=== PATIENT | male | born 2000 | race Caucasian/White ===

== ENCOUNTER 2019-04-08 20:22 | Emergency (ER) | payer OTHER ==
--- NOTE | 2019-04-08 22:05 | EDM.PDOC ---
ED HPI GENERAL MEDICAL PROBLEM - General Chief Complaint: Lower Extremity Injury/Pain Stated Complaint: INJURED RIGHT LEG IN A FALL Time Seen by Provider: 04/08/19 20:45 Source of Information: Reports: Patient History Limitations: Reports: No Limitations - History of Present Illness INITIAL COMMENTS - FREE TEXT/NARRATIVE: 18-year-old male presents for evaluation and treatment of injury to the right lower leg. Patient reports around 06:00 this morning he was walking up some stairs when he tripped and fell up the stairs. Reports he had a corner of the stairs on his right whittington. He has bruising and abrasion to the right whitting[place]. Reports pain with ambulation. He did go to work, works as auto mechanic, and had pain throughout the day and states that in the could no longer walk and it. He has not taken any [id number] medications for pain. No history of any trauma to this leg. Right Leg Pain Score (Numeric/FACES): 5 - Related Data Allergies Allergy/AdvReac Type Severity Reaction Status Date / Time amoxicillin Allergy Hives Verified 04/08/19 20:38 Home Meds: Home Meds Citalopram [Citalopram HBr] 20 mg PO DAILY 04/08/19 [History] Past Medical History HEENT History: Reports: None Cardiovascular History: Reports: None Respiratory History: Reports: None Gastrointestinal History: Reports: None Genitourinary History: Reports: None Musculoskeletal History: Reports: Fracture Neurological History: Reports: None Psychiatric History: Reports: Depression Endocrine/Metabolic History: Reports: None Hematologic History: Reports: None Immunologic History: Reports: None Oncologic (Cancer) History: Reports: None Dermatologic History: Reports: None - Infectious Disease History Infectious Disease History: Reports: None - Past Surgical History Head Surgeries/Procedures: Reports: None Other Musculoskeletal Surgeries/Procedures:: Surgery on left arm after a fracture. Social & Family History - Caffeine Use Caffeine Use: Reports: Soda - Recreational Drug Use Recreational Drug Use: No Review of Systems - Review of Systems Review Of Systems: See Below Musculoskeletal: Reports: Leg Pain (right lower leg) Skin: Reports: Bruising (right anterior mid disal lower leg), Wound (right anterior mid lower leg approximately 8 cm in diameter abrasion) Neurological: Reports: Difficulty Walking. Denies: Numbness, Tingling ED EXAM, GENERAL - Physical Exam Exam: See Below Exam Limited By: No Limitations General Appearance: Alert, WD/WN, No Apparent Distress Respiratory/Chest: No Respiratory Distress Cardiovascular: Normal Peripheral Pulses, Regular Rate, Rhythm Peripheral Pulses: 3+: Posterior Tibial (R), Dorsalis Pedis (R) Extremities: Normal Inspection (no obvious fractures), Normal Range of Motion ( pain with dorsiflexion and plantarflexion), Normal Capillary Refill, Other ( right anterior mid lower leg approximately 8 cm in diameter abrasion, approximately 8cm ecchymosis distal to the abrasion, surrounding swelling) Neurological: Alert, Oriented, Normal Cognition Psychiatric: Normal Affect, Normal Mood Skin Exam: Warm, Dry, Normal Color, Ecchymosis (right anterior lower leg), Wound /Incision (abrasion to the right lower leg) Course - Vital Signs Last Recorded V/S: Last Vital Signs Temp 98.3 F 04/08/19 20:35 Pulse 98 04/08/19 20:35 Resp 16 04/08/19 20:35 BP 155/90 H 04/08/19 20:35 Pulse Ox 99 04/08/19 20:35 - Orders/Labs/Meds Orders: Active Orders 24 hr Category Date Time Status Tibia Fibula Rt [CR] Stat Exams 04/08/19 20:54 Taken Durable Medical Equipment for Discharge [DME for Oth 04/08/19 21:59 Ordered Discharge] [COMM] Stat - Radiology Interpretation Free Text/Narrative:: xray of the tib/fib shows no acute fractures or dislocations. - Re-Assessments/Exams Free Text/Narrative Re-Assessment/Exam: 04/08/19 22:00 reviewed the xray results with patient. recommend crutches and an IGOR bandage. recommend ice and ibuprofen. Follow-up if not much better. Discharge instructions as documented. Departure - Departure Time of Disposition: 22:03 Disposition: Home, Self-Care 01 Condition: Good Clinical Impression: Ecchymosis, Hematoma - Discharge Information *PRESCRIPTION DRUG MONITORING PROGRAM REVIEWED*: No *COPY OF PRESCRIPTION DRUG MONITORING REPORT IN PATIENT JERONIMO: No Instructions: Hematoma, [id number] Referrals: PCP,None [Primary Care Provider] - Forms: ED Department Discharge Additional Instructions: Use the Igor bandage for compression and crutches as needed for discomfort. Ice, elevate and ibuprofen. Elevate the leg as much as you're able to. Ice it multiple times a day. If able recommend taking the next 1-2 days off work to allow the wound to heal. Monitor the abrasion for signs of infection such as increased, swelling, pus or redness. Present to the clinic or the ER should these develop. Follow-up with family medicine if not much better in 7-10 days. Please return to the ER if your symptoms change or worsen. - My Orders Last 24 Hours: My Active Orders 04/08/19 20:54 Tibia Fibula Rt [CR] Stat 04/08/19 21:59 Durable Medical Equipment for Discharge [DME for Discharge] [COMM] Stat - Assessment/Plan Last 24 Hours: My Active Orders 04/08/19 20:54 Tibia Fibula Rt [CR] Stat 04/08/19 21:59 Durable Medical Equipment for Discharge [DME for Discharge] [COMM] Stat
== END 2019-04-08 22:18 | disposition home or self-care (01) ==
LOC: JD.ED 20:22
DX: S80.11XA Contusion of right lower leg, initial encounter (principal); Z88.1 Allergy status to other antibiotic agents; Z79.899 Other long term (current) drug therapy; W10.9XXA Fall (on) (from) unspecified stairs and steps, initial encounter
CPT/HCPCS: 73590-RT; 99282; 99283-25

== ENCOUNTER 2019-11-12 18:10 | Emergency (ER) | payer OTHER ==
[2019-11-12] MEDS ORDERED: Sodium Chloride 0.9% 1,000 ML IV ONE (18:32)
[2019-11-12] MEDS ORDERED: Sodium Chloride 0.9% 10 ML Syringe FLUSH PRN (18:32)
[2019-11-12] MEDS ORDERED: Alum Hydrox/Mag Hydrox/Simeth 30 ML, Lidocaine 2% 15 ML PO ONE ×2 (18:32)
--- NOTE | 2019-11-12 18:39 | EDM.PDOC ---
ED HPI GENERAL MEDICAL PROBLEM - General Chief Complaint: Gastrointestinal Problem Stated Complaint: UPPER ABDOMINAL PAIN Time Seen by Provider: 11/12/19 18:18 Source of Information: Reports: Patient, RN Notes Reviewed History Limitations: Reports: No Limitations - History of Present Illness INITIAL COMMENTS - FREE TEXT/NARRATIVE: Patient is a 18-year-old male coming presents to the ED for the evaluation of upper abdominal pain. The patient states that he has had upper abdominal/ epigastric pain, present for the last 4 days. Patient states that he was seen in the [facility] by Sara Courtney, and was diagnosed with acid reflux, and was prescribed an acid reflux medication, he thinks it may have been omeprazole, he cannot member the name of the medication but did take this today. So he is only gotten 1 dose. Patient notes that the pain is a dull ache , all the time but does increase in severity when he eats or drinks anything. Patient states that he has not been able to eat or drink much in the last couple days. He states that he is only eaten 2 meals due to the pain. This consisted of a couple granola bars and some eggs. Patient notes this to be in his epigastrium and left lower rib cage or left upper quadrant area. He denies any nausea/vomiting/diarrhea, and states that his last bowel movement was normal for him this morning. The patient notes that the pain does worsen when he lies flat. Patient further denies any history of alcohol use, cigarette use , he does use a vape pen, denies drug use. Patient notes that he did not get any laboratory evaluation when he was evaluated in the clinic the other day. He denies any heart or lung issues. He also has no family history of any early cardiac demise. Patient denies any abdomen surgery history. Upper Abdominal Pain Score (Numeric/FACES): 2 - Related Data Allergies Allergy/AdvReac Type Severity Reaction Status Date / Time amoxicillin Allergy Hives Verified 11/12/19 18:21 Home Meds: Home Meds Citalopram [Citalopram HBr] 20 mg PO DAILY 04/08/19 [History] Sucralfate [Carafate] 1 gm PO TIDAC #21 ml 11/12/19 [Rx] Past Medical History Musculoskeletal History: Reports: Fracture Psychiatric History: Reports: Depression - Past Surgical History Other Musculoskeletal Surgeries/Procedures:: Surgery on left arm after a fracture. Social & Family History - Tobacco Use Smoking Status *Q: Current Every Day Smoker Tobacco Use Within Last Twelve Months: Vaping - Caffeine Use Caffeine Use: Reports: None - Recreational Drug Use Recreational Drug Use: No ED ROS GENERAL - Review of Systems Review Of Systems: Comprehensive ROS is negative, except as noted in HPI. ED EXAM, GI/ABD - Physical Exam Exam: See Below Exam Limited By: No Limitations General Appearance: Alert, WD/WN, No Apparent Distress Eyes: Bilateral: Normal Appearance Ears: Normal External Exam Nose: Normal Inspection Throat/Mouth: Normal Inspection, Normal Lips, Normal Teeth, Normal Gums, Normal Oropharynx, Normal Voice, No Airway Compromise Head: Atraumatic, Normocephalic Neck: Normal Inspection, Supple, Non-Tender, Full Range of Motion Respiratory/Chest: No Respiratory Distress, Lungs Clear, Normal Breath Sounds, No Accessory Muscle Use, Chest Non-Tender Cardiovascular: Normal Peripheral Pulses, Regular Rate, Rhythm, No Murmur GI/Abdominal Exam: Normal Bowel Sounds, Soft, No Distention, No Mass, Tender ( epigastrium and into LUQ) Extremities: Normal Inspection, Normal Capillary Refill Neurological: Alert, Oriented, Normal Cognition, No Motor/Sensory Deficits Psychiatric: Normal Affect, Normal Mood Skin Exam: Warm, Dry, Intact, Normal Color, No Rash Course - Vital Signs Last Recorded V/S: Last Vital Signs Temp 97.9 F 11/12/19 18:23 Pulse 73 11/12/19 18:23 Resp 18 11/12/19 18:23 BP 142/81 H 11/12/19 18:23 Pulse Ox 96 11/12/19 18:23 - Orders/Labs/Meds Orders: Active Orders 24 hr Category Date Time Status Peripheral IV Care [RC] . DIRECTED Care 11/12/19 18:32 Active Peripheral IV Insertion Adult [OM.PC] Routine Oth 11/12/19 18:32 Ordered Labs: Laboratory Tests 11/12/19 11/12/19 Range/Units 18:50 18:50 WBC 7.47 (4.23-9.07) K/mm3 RBC 5.29 (4.63-6.08) M/mm3 Hgb 16.5 (13.7-17.5) gm/dl Hct 45.0 (40.1-51.0) % MCV 85.1 (79.0-92.2) fl MCH 31.2 (25.7-32.2) pg MCHC 36.7 H (32.2-35.5) g/dl RDW Std Deviation 37.7 (35.1-43.9) fL Plt Count 390 H (163-337) K/mm3 MPV 8.8 L (9.4-12.3) fl Neut % (Auto) 71.4 H (34.0-67.9) % Lymph % (Auto) 18.2 L (21.8-53.1) % [place] % (Auto) 9.6 (5.3-12.2) % Eos % (Auto) 0.4 L (0.8-7.0) Baso % (Auto) 0.3 (0.1-1.2) % Neut # (Auto) 5.33 (1.78-5.38) K/mm3 Lymph # (Auto) 1.36 (1.32-3.57) K/mm3 [place] # (Auto) 0.72 (0.30-0.82) K/mm3 Eos # (Auto) 0.03 L (0.04-0.54) K/mm3 Baso # (Auto) 0.02 (0.01-0.08) K/mm3 Manual Slide Review Normal smear Sodium 141 (136-145) mEq/L Potassium 3.7 (3.5-5.1) mEq/L Chloride 104 (98-107) mEq/L Carbon Dioxide 27 (21-32) mEq/L Anion Gap 13.7 (5-15) BUN 14 (7-18) mg/dL Creatinine 1.1 (0.7-1.3) mg/dL Est Cr Clr Drug Dosing 110.61 mL/min Estimated GFR (MDRD) > 60 (>60) mL/min BUN/Creatinine Ratio 12.7 L (14-18) Glucose 93 (74-106) mg/dL Calcium 9.8 (8.5-10.1) mg/dL Total Bilirubin 1.0 (0.2-1.0) mg/dL AST 24 (15-37) U/L ALT 47 (16-63) U/L Alkaline Phosphatase 97 (46-116) U/L Total Protein 8.2 (6.4-8.2) g/dl Albumin 4.6 (3.4-5.0) g/dl Globulin 3.6 gm/dL Albumin/Globulin Ratio 1.3 (1-2) Lipase 108 (73-393) U/L Meds: Medications Discontinued Medications Generic Name Dose Route Start Last Admin Trade Name Freq PRN Reason Stop Dose Admin Al Hydroxide/Mg Hydroxide 30 0 ml 11/12/19 18:32 11/12/19 18:45 ml/ Lidocaine HCl 15 ml PO 11/12/19 18:33 45 ml ONETIME ONE Administration Sodium Chloride 1,000 mls @ 999 mls/hr 11/12/19 18:32 11/12/19 18:45 Normal Saline IV 11/12/19 19:32 999 mls/hr ONETIME ONE Administration Sodium Chloride 10 ml 11/12/19 18:32 11/12/19 18:53 Saline Flush FLUSH 10 ml ASDIRECTED PRN Administration Keep Vein Open - Re-Assessments/Exams Free Text/Narrative Re-Assessment/Exam: 11/12/19 18:39 Patient presents to the ED for upper epigastric/left upper quadrant pain. I do strongly believe that this is more heartburn or ulcer in nature, have ordered some labs for further evaluation. Did order a GI cocktail at this time for initial management. I did warn the patient that the omeprazole can take up to 72 hours to start working, as his first dose was only taken today. 11/12/19 19:38 Patient's labs are back and demonstrate no focal abnormalities. Patient will be discharged home with a course of Carafate and other general recommendations. Departure - Departure Time of Disposition: 19:38 Disposition: Home, Self-Care 01 Condition: Good Clinical Impression: Gastritis Qualifiers: Gastritis type: unspecified gastritis Chronicity: acute Gastritis bleeding: presence of bleeding unspecified Qualified Code(s): K29.00 - Acute gastritis without bleeding - Discharge Information *PRESCRIPTION DRUG MONITORING PROGRAM REVIEWED*: No *COPY OF PRESCRIPTION DRUG MONITORING REPORT IN PATIENT JERONIMO: No Prescriptions: Sucralfate [Carafate] 1 gm PO TIDAC #21 ml Instructions: Gastritis, Adult, [id number] Referrals: Sara Courtney NP [Ordering Only Provider] - Forms: ED Department Discharge Additional Instructions: You were evaluated in the ER today regarding your upper abdominal pain. You got some IV fluids, a GI cocktail and had some labs taken. The laboratory evaluation was essentially within normal limits. You seem to get some relief from the GI cocktail which would suggest that your symptoms are due more to a gastritis/ulcer/acid reflux in nature. Recommend you keep taking the medication already prescribed by Sara Courtney assuming that it is omeprazole (Prilosec). If she did not prescribe this medication recommend you pick some up at a retail pharmacy, and take as directed on the box, usually 1 tab daily. 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 You were given a prescription for sucralfate, please take 1 cup with meals, this will help coat the inner lining of your stomach, and provide you with some further pain relief so that you may eat meals. This was electronically prescribed to the [place] [facility], you will need to go there tomorrow and pick this up to take as directed. You may want to try to stick to a clear liquid diet, please get some full sugar Gatorade/Powerade and drink a few bottles on a daily basis, or stick to a bland diet. Try to stay away from spicy foods, alcohol, etc. Recommend you talk with your primary care provider, Sara Courtney about H. pylori testing, and the possibility of an upper endoscopy or EGD for further evaluation. Please return to the ED at any time if symptoms change or worsen. Sepsis Event Note - Evaluation Sepsis Screening Result: No Definite Risk - Focused Exam Vital Signs: Vital Signs Temp Pulse Resp BP Pulse Ox 11/12/19 18:23 97.9 F 73 18 142/81 H 96 Date Exam was Performed: 11/12/19 Time Exam was Performed: 20:12 - My Orders Last 24 Hours: My Active Orders 11/12/19 18:32 Peripheral IV Care [RC] . DIRECTED Peripheral IV Insertion Adult [OM.PC] Routine - Assessment/Plan Last 24 Hours: My Active Orders 11/12/19 18:32 Peripheral IV Care [RC] . DIRECTED Peripheral IV Insertion Adult [OM.PC] Routine
== END 2019-11-12 19:45 | disposition home or self-care (01) ==
LOC: JD.ED 18:10
DX: K29.00 Acute gastritis without bleeding (principal); F32.9 Major depressive disorder, single episode, unspecified; F17.290 Nicotine dependence, other tobacco product, uncomplicated; Z88.1 Allergy status to other antibiotic agents; Z79.899 Other long term (current) drug therapy
CPT/HCPCS: 36415; 80053; 83690; 85025; 96360; 99283; 99284-25; A9270-GY; J7030

== ENCOUNTER 2020-01-17 19:36 | Emergency (ER) | payer OTHER ==
[2020-01-17] MEDS ORDERED: Sodium Chloride 0.9% 10 ML Syringe FLUSH PRN (20:12)
[2020-01-17] MEDS ORDERED: Dexamethasone 10 MG/ML SDV IVPUSH ONE (20:12)
[2020-01-17] MEDS ORDERED: Ketorolac 30 MG/ML SDV IVPUSH ONE (20:12)
[2020-01-17] MEDS ORDERED: Sodium Chloride 0.9% 1,000 ML IV ONE (20:12)
[2020-01-17] MEDS ORDERED: cefTRIAXone 2 GM in Sodium Chloride 0.9% 100 ML IV ONE (20:13)
--- NOTE | 2020-01-17 20:34 | EDM.PDOC ---
ED HPI GENERAL MEDICAL PROBLEM - General Chief Complaint: ENT Problem Stated Complaint: THROAT PAIN CANT DRINK OR TAKE PILLS Time Seen by Provider: 01/17/20 20:00 Source of Information: Reports: Patient History Limitations: Reports: No Limitations - History of Present Illness INITIAL COMMENTS - FREE TEXT/NARRATIVE: Wilbert is a 19 year old male who presents to the ER with sore throat, odynophagia, dysphagia, and ear pain. Reports symptoms for the last 3-4 days. Was seen at the clinic , had a strep test done which was negative. Went to the walk-in clinic today, had blood work including a mono screen which was negative. States he was given a shot of steroids and prescribed steroids but has been unable to take them due to pain. Has not been able to eat or drink today due to the pain. reports a sore throat radiating into his bilateral ears, dysphagia and odynophagia. no heartburn. Last void was this morning. Throat Pain Score (Numeric/FACES): 8 - Related Data Allergies Allergy/AdvReac Type Severity Reaction Status Date / Time amoxicillin Allergy Severe Hives Verified 01/17/20 19:49 Penicillins Allergy Severe Hives Verified 01/17/20 19:49 Home Meds: Home Meds Citalopram [Citalopram HBr] 40 mg PO DAILY 04/08/19 [History] Sucralfate [Carafate] 1 gm PO TIDAC #21 ml 11/12/19 [Rx] Azithromycin 250 mg PO DAILY #6 tablet 01/17/20 [Rx] LORazepam [Ativan] 0.5 mg PO DAILY PRN 01/17/20 [History] Lidocaine 2% [Xylocaine 2% Viscous] 15 ml PO ASDIRECTED #300 ml 01/17/20 [Rx] predniSONE [Prednisone] 10 mg PO DAILY 01/17/20 [History] Past Medical History HEENT History: Reports: None Cardiovascular History: Reports: None Respiratory History: Reports: None Gastrointestinal History: Reports: None Genitourinary History: Reports: None Musculoskeletal History: Reports: Fracture Neurological History: Reports: None Psychiatric History: Reports: Depression Endocrine/Metabolic History: Reports: None Hematologic History: Reports: None Immunologic History: Reports: None Oncologic (Cancer) History: Reports: None Dermatologic History: Reports: None - Infectious Disease History Infectious Disease History: Reports: None - Past Surgical History Head Surgeries/Procedures: Reports: None Other Musculoskeletal Surgeries/Procedures:: Surgery on left arm after a fracture. Social & Family History - Tobacco Use Smoking Status *Q: Never Smoker - Caffeine Use Caffeine Use: Reports: None - Recreational Drug Use Recreational Drug Use: No ED ROS ENT - Review of Systems Review Of Systems: See Below Constitutional: Denies: Fever HEENT: Reports: Ear Pain, Throat Pain, Other (reprots dysphagia and odynophagia) ED EXAM, ENT - Physical Exam Exam: See Below Exam Limited By: No Limitations General Appearance: Alert, WD/WN, No Apparent Distress Ears: Normal External Exam, Normal Canal, Hearing Grossly Normal, TM Erythema Nose: Normal Inspection Mouth/Throat: Normal Inspection, Normal Gums, Normal Lips, Pharyngeal Erythema, Tonsillar Erythema, Tonsillar Exudates, Tonsillar Swelling. No: Muffled Voice, Peritonsillar Mass, Uvular Deviation Respiratory/Chest: No Respiratory Distress, Lungs Clear, Normal Breath Sounds Cardiovascular: Normal Peripheral Pulses, Regular Rate, Rhythm, No Murmur Neurological: Alert, Oriented, Normal Cognition Psychiatric: Normal Affect, Normal Mood Skin: Warm, Dry, Normal Color Course - Vital Signs Last Recorded V/S: Last Vital Signs Temp 98 F 01/17/20 19:46 Pulse 96 01/17/20 19:46 Resp 16 01/17/20 19:46 BP 151/82 H 01/17/20 19:46 Pulse Ox 93 L 01/17/20 19:46 - Orders/Labs/Meds Orders: Active Orders 24 hr Category Date Time Status Peripheral IV Care [RC] . DIRECTED Care 01/17/20 20:12 Active CORONAVIRUS COVID-19 PCR PHL Stat Lab 01/17/20 20:30 Received CULTURE STREP A CONFIRMATION [] Stat Lab 01/17/20 20:30 Results STREP SCRN A RAPID W CULT CONF [] Stat Lab 01/17/20 20:30 Results Sodium Chloride 0.9% [Saline Flush] Med 01/17/20 20:12 Active 10 ml FLUSH ASDIRECTED PRN Peripheral IV Insertion Adult [OM.PC] Routine Oth 01/17/20 20:12 Ordered Medication Orders Sodium Chloride (Saline Flush) 10 ml FLUSH ASDIRECTED PRN PRN Reason: Keep Vein Open Last Admin: 01/17/20 20:26 Dose: 10 ml Documented by: ROLANDO Labs: Laboratory Tests 01/17/20 01/17/20 Range/Units 20:30 20:30 WBC 17.12 H (4.23-9.07) K/mm3 RBC 5.66 (4.63-6.08) M/mm3 Hgb 17.4 (13.7-17.5) gm/dl Hct 49.4 (40.1-51.0) % MCV 87.3 (79.0-92.2) fl MCH 30.7 (25.7-32.2) pg MCHC 35.2 (32.2-35.5) g/dl RDW Std Deviation 39.6 (35.1-43.9) fL Plt Count 414 H (163-337) K/mm3 MPV 9.0 L (9.4-12.3) fl Neut % (Auto) 90.1 H (34.0-67.9) % Lymph % (Auto) 4.1 L (21.8-53.1) % [place] % (Auto) 5.4 (5.3-12.2) % Eos % (Auto) 0 L (0.8-7.0) Baso % (Auto) 0.1 (0.1-1.2) % Neut # (Auto) 15.42 H (1.78-5.38) K/mm3 Lymph # (Auto) 0.70 L (1.32-3.57) K/mm3 [place] # (Auto) 0.93 H (0.30-0.82) K/mm3 Eos # (Auto) 0.00 L (0.04-0.54) K/mm3 Baso # (Auto) 0.02 (0.01-0.08) K/mm3 Manual Slide Review Normal smear C-Reactive Protein 14.8 H* (<1.0) mg/dL Meds: Medications Generic Name Dose Route Start Last Admin Trade Name Freq PRN Reason Stop Dose Admin Sodium Chloride 10 ml 01/17/20 20:12 01/17/20 20:26 Saline Flush FLUSH 10 ml ASDIRECTED PRN Administration Keep Vein Open Discontinued Medications Generic Name Dose Route Start Last Admin Trade Name Freq PRN Reason Stop Dose Admin Dexamethasone 8 mg 01/17/20 20:12 01/17/20 20:25 Dexamethasone IVPUSH 01/17/20 20:13 8 mg ONETIME ONE Administration Sodium Chloride 1,000 mls @ 999 mls/hr 01/17/20 20:12 01/17/20 20:24 Normal Saline IV 01/17/20 21:12 999 mls/hr ONETIME ONE Administration Ceftriaxone Sodium 2 gm/ 100 mls @ 200 mls/hr 01/17/20 20:13 01/17/20 20:28 Sodium Chloride IV 01/17/20 20:42 200 mls/hr ONETIME ONE Administration Ketorolac Tromethamine 30 mg 01/17/20 20:12 01/17/20 20:24 Toradol IVPUSH 01/17/20 20:13 30 mg ONETIME ONE Administration - Re-Assessments/Exams Free Text/Narrative Re-Assessment/Exam: 01/17/20 22:01 I reviewed his labs results with him. Negative rapid strep. Covid test pending. Reminded to quarantine until results available. Will start on antibiotics, azithromycin due to his pcn allergy. Discharge instructions as documented. Departure - Departure Time of Disposition: 22:02 Disposition: Home, Self-Care 01 Condition: Fair Clinical Impression: Acute bacterial tonsillitis - Discharge Information *PRESCRIPTION DRUG MONITORING PROGRAM REVIEWED*: No *COPY OF PRESCRIPTION DRUG MONITORING REPORT IN PATIENT JERONIMO: No Prescriptions: Azithromycin 250 mg PO DAILY #6 tablet Lidocaine 2% [Xylocaine 2% Viscous] 15 ml PO ASDIRECTED #300 ml Instructions: Tonsillitis, [id number] Referrals: PCP,None [Primary Care Provider] - Forms: ED Department Discharge Additional Instructions: take the azithromycin as prescribed, 2 tabs day 1 then 1 tab Po days 2-5 may continue to take OTC tylenol or motrin as needed for pain. Drink plenty of fluids, recommend soft foods. viscous lidocaine 15mls PO every 3 hours swish, spit or swallow continue steroids as prescribed. recommend a tonsillectomy, contact your PCP for a referral please return to the Er should your symptoms change or worsen Sepsis Event Note (ED) - Evaluation Sepsis Screening Result: No Definite Risk - Focused Exam Vital Signs: Vital Signs Temp Pulse Resp BP Pulse Ox 01/17/20 19:46 98 F 96 16 151/82 H 93 L - My Orders Last 24 Hours: My Active Orders 01/17/20 20:12 Peripheral IV Care [RC] . DIRECTED Sodium Chloride 0.9% [Saline Flush] 10 ml FLUSH ASDIRECTED PRN Peripheral IV Insertion Adult [OM.PC] Routine 01/17/20 20:30 CORONAVIRUS COVID-19 PCR PHL Stat CULTURE STREP A CONFIRMATION [RM] Stat STREP SCRN A RAPID W CULT CONF [RM] Stat - Assessment/Plan Last 24 Hours: My Active Orders 01/17/20 20:12 Peripheral IV Care [RC] . DIRECTED Sodium Chloride 0.9% [Saline Flush] 10 ml FLUSH ASDIRECTED PRN Peripheral IV Insertion Adult [OM.PC] Routine 01/17/20 20:30 CORONAVIRUS COVID-19 PCR PHL Stat CULTURE STREP A CONFIRMATION [RM] Stat STREP SCRN A RAPID W CULT CONF [] Stat
== END 2020-01-17 22:19 | disposition home or self-care (01) ==
LOC: JD.ED 19:36
DX: J03.80 Acute tonsillitis due to other specified organisms (principal); B96.89 Other specified bacterial agents as the cause of diseases classified elsewhere; F32.9 Major depressive disorder, single episode, unspecified; Z88.0 Allergy status to penicillin; Z79.899 Other long term (current) drug therapy; Z88.1 Allergy status to other antibiotic agents
CPT/HCPCS: 36415; 85025; 86140; 87081; 87430; 87635; 96365; 96375; 99283; J0696; J1100; J1885; J7030; J7050; U0002

== ENCOUNTER 2020-01-24 11:25 | Emergency (ER) | payer OTHER ==
--- NOTE | 2020-01-24 12:28 | EDM.PDOC ---
ED HPI GENERAL MEDICAL PROBLEM - General Chief Complaint: ENT Problem Stated Complaint: THROAT HURTS Time Seen by Provider: 01/24/20 12:28 - History of Present Illness INITIAL COMMENTS - FREE TEXT/NARRATIVE: 19-year-old male presents the emergency room with a continued sore throat Patient was seen a week ago here with pretty severe tonsillitis. He was started on Zithromax and prednisone 10 mg a day. He did really well for the first few days however starting about 3 or 4 days ago things started getting worse again now to the point where he is having some discomfort with eating and drinking. Tonsils are still quite enlarged and the patient believes they are getting worse. Denies fevers or chills. Treatments FILLER AND TRIMMER: Reports: NSAIDS Other Treatments FILLER AND TRIMMER: t-1 [id number] Throat Pain Score (Numeric/FACES): 9 - Related Data Allergies Allergy/AdvReac Type Severity Reaction Status Date / Time amoxicillin Allergy Severe Hives Verified 01/24/20 11:55 Penicillins Allergy Severe Hives Verified 01/24/20 11:55 Home Meds: Home Meds Citalopram [Citalopram HBr] 40 mg PO DAILY 04/08/19 [History] LORazepam [Ativan] 0.5 mg PO DAILY PRN 01/17/20 [History] Clindamycin HCl 150 mg PO Q6H #40 capsule 01/24/20 [Rx] predniSONE 10 mg PO .TAPER #12 tab 01/24/20 [Rx] Past Medical History HEENT History: Reports: None, Impaired Vision Cardiovascular History: Reports: None Respiratory History: Reports: None Gastrointestinal History: Reports: None Genitourinary History: Reports: None Musculoskeletal History: Reports: Fracture Neurological History: Reports: None Psychiatric History: Reports: Depression Endocrine/Metabolic History: Reports: None Hematologic History: Reports: None Immunologic History: Reports: None Oncologic (Cancer) History: Reports: None Dermatologic History: Reports: None - Infectious Disease History Infectious Disease History: Reports: None - Past Surgical History Head Surgeries/Procedures: Reports: None Other HEENT Surgeries/Procedures: tonsills swollen and inflamed last week and today Other Musculoskeletal Surgeries/Procedures:: Surgery on left arm after a fracture. Social & Family History - Family History HEENT: Reports: None Cardiac: Reports: None Respiratory: Reports: None GI: Reports: None : Reports: None OBGYN: Reports: None Musculoskeletal: Reports: None Neurological: Reports: None Psychiatric: Reports: None Endocrine/Metabolic: Reports: None Hematologic: Reports: None Immunologic: Reports: None Dermatologic: Reports: None - Tobacco Use Smoking Status *Q: Never Smoker - Caffeine Use Caffeine Use: Reports: Coffee, Energy Drinks - Recreational Drug Use Recreational Drug Use: Yes Drug Use in Last 12 Months: Yes Recreational Drug Type: Reports: Marijuana/Hashish Recreational Drug Use Frequency: Rarely ED ROS ENT - Review of Systems Review Of Systems: See Below Constitutional: Denies: Fever, Chills HEENT: Reports: Throat Pain Respiratory: Reports: No Symptoms Cardiovascular: Reports: No Symptoms GI/Abdominal: Reports: No Symptoms ED EXAM, ENT - Physical Exam Exam: See Below Exam Limited By: No Limitations General Appearance: Alert, No Apparent Distress Eye Exam: Bilateral Eye: Normal Inspection Ears: Normal External Exam, Normal Canal, Hearing Grossly Normal, Normal TMs Nose: Normal Inspection, Normal Mucousa, No Blood Mouth/Throat: Normal Inspection, Normal Gums, Normal Lips, Normal Teeth, Other (Tonsils are quite enlarged however they are not touching. They are symmetrical erythematous no visible exudate) Head: Atraumatic, Normocephalic Neck: Normal Inspection, Supple, Non-Tender, Full Range of Motion. No: Lymphadenopathy (L), Lymphadenopathy (R) Respiratory/Chest: No Respiratory Distress, Lungs Clear, Normal Breath Sounds Cardiovascular: Regular Rate, Rhythm, No Edema, No Murmur Course - Vital Signs Last Recorded V/S: Last Vital Signs Temp 37.1 C 01/24/20 11:50 Pulse 63 01/24/20 11:50 Resp 16 01/24/20 11:50 BP 121/85 01/24/20 11:50 Pulse Ox 96 01/24/20 11:50 - Re-Assessments/Exams Free Text/Narrative Re-Assessment/Exam: 01/24/20 13:06 Patient has persistent tonsillitis that is now worsening again. We will start him on clindamycin 150 mg 4 times a day and restart prednisone, however will use a prednisone taper this time. Departure - Departure Time of Disposition: 13:06 Disposition: Home, Self-Care 01 Clinical Impression: Tonsillitis - Discharge Information Referrals: PCP,None [Primary Care Provider] - Forms: ED Department Discharge Additional Instructions: Return to the emergency room with any questions problems or worsening symptoms. Follow-up in a clinic either here or in [place] in 1 week for recheck. Take the clindamycin, a antibiotic, and the prednisone as directed. Sepsis Event Note (ED) - Evaluation Sepsis Screening Result: No Definite Risk - Focused Exam Vital Signs: Vital Signs Temp Pulse Resp BP Pulse Ox 01/24/20 11:50 37.1 C 63 16 121/85 96
== END 2020-01-24 13:35 | disposition home or self-care (01) ==
LOC: JD.ED 11:25
DX: J03.90 Acute tonsillitis, unspecified (principal); F32.9 Major depressive disorder, single episode, unspecified; Z88.1 Allergy status to other antibiotic agents; Z88.0 Allergy status to penicillin; Z79.899 Other long term (current) drug therapy
CPT/HCPCS: 99282; 99283

== ENCOUNTER 2021-02-02 01:21 | Emergency (ER) | payer OTHER ==
--- NOTE | 2021-02-02 01:37 | EDM.PDOC ---
ED HPI GENERAL MEDICAL PROBLEM - General Chief Complaint: ENT Problem Stated Complaint: PAINS IN THE RIGHT SIDE OF FACE Time Seen by Provider: 02/02/21 01:31 Source of Information: Reports: Patient History Limitations: Reports: No Limitations - History of Present Illness INITIAL COMMENTS - FREE TEXT/NARRATIVE: Patient is a 20-year-old male is complaining of having right maxillary pain that started this morning is gotten worse as the day goes on. He describes as pressure-like pain. He is not having any dental pain denies any postnasal drip but does feel that his sinuses on the right maxillary area are painful he denies having previous sinus infections. He denies any fever or chills. He does not have any pain when he moves his jaw or eats. He has taken some ibuprofen about 4:00 this afternoon without relief. Onset: Today Duration: Getting Worse Location: Reports: Face Quality: Reports: Ache, Pressure Severity: Moderate Improves with: Reports: None Worsens with: Reports: None Associated Symptoms: Reports: No Other Symptoms Treatments BEAD CUTTER: Reports: NSAIDS Left Face/Facial Pain Score (Numeric/FACES): 10 - Related Data Allergies Allergy/AdvReac Type Severity Reaction Status Date / Time amoxicillin Allergy Severe Hives Verified 02/02/21 01:31 Penicillins Allergy Severe Hives Verified 02/02/21 01:31 Home Meds: Home Meds . [No Known Home Meds] 02/02/21 [History] Past Medical History HEENT History: Reports: None, Impaired Vision Cardiovascular History: Reports: None Respiratory History: Reports: None Gastrointestinal History: Reports: None Genitourinary History: Reports: None Musculoskeletal History: Reports: Fracture Neurological History: Reports: None Psychiatric History: Reports: Depression Endocrine/Metabolic History: Reports: None Hematologic History: Reports: None Immunologic History: Reports: None Oncologic (Cancer) History: Reports: None Dermatologic History: Reports: None - Infectious Disease History Infectious Disease History: Reports: None - Past Surgical History Head Surgeries/Procedures: Reports: None Other HEENT Surgeries/Procedures: tonsills swollen and inflamed last week and today Other Musculoskeletal Surgeries/Procedures:: Surgery on left arm after a fracture. Social & Family History - Family History HEENT: Reports: None Cardiac: Reports: None Respiratory: Reports: None GI: Reports: None : Reports: None OBGYN: Reports: None Musculoskeletal: Reports: None Neurological: Reports: None Psychiatric: Reports: None Endocrine/Metabolic: Reports: None Hematologic: Reports: None Immunologic: Reports: None Dermatologic: Reports: None - Caffeine Use Caffeine Use: Reports: Coffee, Energy Drinks ED ROS ENT - Review of Systems Review Of Systems: Comprehensive ROS is negative, except as noted in HPI. ED EXAM, ENT - Physical Exam Exam: See Below Exam Limited By: No Limitations General Appearance: Alert, Mild Distress Mouth/Throat: Normal Inspection, Normal Gums, Normal Teeth. No: Dental Abcess, Dental Pain, Dental Tenderness, Throat Pain, Tonsillar Erythema Head: Atraumatic, Normocephalic, Facial Tenderness, Sinus Tenderness (His right maxillary sinus is tender.). No: Facial Swelling Respiratory/Chest: No Respiratory Distress Extremities: Normal Inspection Neurological: Alert, Oriented Psychiatric: Normal Affect, Normal Mood Skin: Warm, Dry, Normal Color Course - Vital Signs Text/Narrative:: I have giving the patient some Afrin nasal spray on the right nostril and started on clindamycin for possible sinus infection. I will give him a [facility] med prescription for some Onaway. I am advising continue with ibuprofen with meals. He will also get a prescription for more clindamycin. He is to return to ER symptoms are worse and follow-up with his PCP for recheck this week. Last Recorded V/S: Last Vital Signs Temp 99.9 F 02/02/21 01:28 Pulse 89 02/02/21 01:28 Resp 18 02/02/21 01:28 BP 160/87 H 02/02/21 01:28 Pulse Ox 100 02/02/21 01:28 - Orders/Labs/Meds Meds: Medications Discontinued Medications Generic Name Dose Route Start Last Admin Trade Name Mary Beth PRN Reason Stop Dose Admin Clindamycin HCl 300 mg 02/02/21 01:40 02/02/21 01:48 Clindamycin Hcl 150 Mg Cap PO 02/02/21 01:41 300 mg ONETIME ONE Administration Oxymetazoline HCl 2 ml 02/02/21 01:41 02/02/21 01:48 Oxymetazoline 0.05% Nasal [place] 30 Ml Bottle RADHA 02/02/21 01:42 2 ml ONETIME ONE Administration Departure - Departure Time of Disposition: 01:43 Disposition: Home, Self-Care 01 Condition: Good Clinical Impression: Maxillary sinusitis, acute - Discharge Information Instructions: Sinusitis, Adult, [id number] Referrals: PCP,None [Primary Care Provider] - Forms: ED Department Discharge Additional Instructions: Afrin on the right side only. Do not continue to use after 3 days without taking a 2-day holiday. Ibuprofen with meals. Onaway if needed. Clindamycin as prescribed. Follow-up with ENT and or PCP this week for recheck. Return to ER if worse. Sepsis Event Note (ED) - Evaluation Sepsis Screening Result: No Definite Risk - Focused Exam Vital Signs: Vital Signs Temp Pulse Resp BP Pulse Ox 02/02/21 01:28 99.9 F 89 18 160/87 H 100
[2021-02-02] MEDS ORDERED: Clindamycin HCl 150 MG Cap PO ONE (01:40)
[2021-02-02] MEDS ORDERED: Oxymetazoline 0.05% Nasal Spray 30 ML Bottle NAS ONE (01:41)
== END 2021-02-02 02:16 | disposition home or self-care (01) ==
LOC: JD.ED 01:21
DX: J01.00 Acute maxillary sinusitis, unspecified (principal); Z88.0 Allergy status to penicillin
CPT/HCPCS: 99283; A9270

== ENCOUNTER 2021-03-25 13:57 | Emergency (ER) | payer OTHER ==
--- NOTE | 2021-03-25 14:33 | EDM.PDOC ---
ED HPI GENERAL MEDICAL PROBLEM - General Chief Complaint: Abdominal Pain Stated Complaint: ABDOMINAL PAIN Time Seen by Provider: 03/25/21 14:20 Source of Information: Reports: Patient History Limitations: Reports: No Limitations - History of Present Illness INITIAL COMMENTS - FREE TEXT/NARRATIVE: 20-year-old male presents to the ED with a 5-day history of persistent upper abdominal pain worsened by eating and deep breathing. Patient states if he eats the pain intensifies immensely and he feels very bloated. He feels constipated but if he sits on the toilet he only gets a small amount of watery stool with no blood. He has not identified any fever or chills. Rarely drinks alcohol. No previous abdominal surgery. Pain was constant with no ability to sleep much last night at all. Pain is constant but does have a strong colicky component. No radiation of pain into his back. No bleeding per rectum. No history of inflammatory bowel disease. He has never had problems with GERD or heartburn. Onset: Gradual (Gradually worsening of abdominal pain particularly epigastric area for the last 5 days), Unknown/Unsure (Abdominal pain off and on for the last 3-1/2 weeks.) Onset Date: 03/21/21 (Pain is been much worse since Sunday, March 21) Duration: Day(s):, Colic, Constant, Getting Worse Location: Reports: Abdomen (Pain primarily felt in the epigastrium and across the upper quadrants bilaterally). Denies: Radiates to (No radiation to his back) Quality: Reports: Sharp (Drunk colicky component to the pain), Stabbing, Other (Described as a deep aching pain which is occasionally is very sharp and stabbing particular if he eats.) Severity: Moderate (8-10) Improves with: Reports: None Worsens with: Reports: Eating (Pain is made much worse by eating.) Context: Reports: Other (Worsening over the last). Denies: Activity, Exercise, Lifting, Sick Contact, Trauma Associated Symptoms: Reports: Loss of Appetite, Malaise, Nausea/Vomiting, Other (Mild diarrhea stool with strong feeling of need to defecate with no formed stool. No bleeding per rectum). Denies: Confusion, Chest Pain, Cough, cough w sputum, Diaphoresis, Fever/Chills, Headaches, Rash (Nausea if he eats.), Seizure, Shortness of Breath, Syncope, Weakness Treatments COMBO WELDER: Reports: Acetaminophen Upper Anterior Abdomen Pain Score (Numeric/FACES): 9 - Related Data Allergies Allergy/AdvReac Type Severity Reaction Status Date / Time amoxicillin Allergy Severe Hives Verified 02/02/21 01:31 Penicillins Allergy Severe Hives Verified 02/02/21 01:31 Home Meds: Home Meds Dicyclomine [Bentyl] 20 mg PO Q6H PRN #8 tablet 03/25/21 [Rx] levoFLOXacin [Levaquin] 500 mg PO DAILY #10 tab 03/25/21 [Rx] oxyCODONE HCl/Acetaminophen [Percocet 5-325 mg Tablet] 1 - 2 each PO Q4H PRN #14 tablet 03/25/21 [Rx] Past Medical History HEENT History: Reports: None, Impaired Vision Cardiovascular History: Reports: None Respiratory History: Reports: None Gastrointestinal History: Reports: None Genitourinary History: Reports: None Musculoskeletal History: Reports: Fracture Neurological History: Reports: None Psychiatric History: Reports: Depression Endocrine/Metabolic History: Reports: None Hematologic History: Reports: None Immunologic History: Reports: None Oncologic (Cancer) History: Reports: None Dermatologic History: Reports: None - Infectious Disease History Infectious Disease History: Reports: None - Past Surgical History Head Surgeries/Procedures: Reports: None Other HEENT Surgeries/Procedures: tonsills swollen and inflamed last week and today Other Musculoskeletal Surgeries/Procedures:: Surgery on left arm after a fracture. Social & Family History - Family History HEENT: Reports: None Cardiac: Reports: None Respiratory: Reports: None GI: Reports: None : Reports: None OBGYN: Reports: None Musculoskeletal: Reports: None Neurological: Reports: None Psychiatric: Reports: None Endocrine/Metabolic: Reports: None Hematologic: Reports: None Immunologic: Reports: None Dermatologic: Reports: None - Caffeine Use Caffeine Use: Reports: Coffee, Energy Drinks - Living Situation & Occupation Living situation: Reports: Single Occupation: Employed ED ROS GENERAL - Review of Systems Review Of Systems: See Below Constitutional: Reports: Malaise, Fatigue (From not sleeping.), Decreased Appetite, Weight Loss. Denies: Fever, Chills HEENT: Reports: No Symptoms Respiratory: Reports: No Symptoms Cardiovascular: Reports: No Symptoms Endocrine: Reports: No Symptoms GI/Abdominal: Reports: Abdominal Pain (See history of present illness), Diarrhea (Loose stools are associated with trying to defecate. Feels constipated but unable to pass any formed stool), Nausea. Denies: Vomiting (With eating) : Reports: No Symptoms Musculoskeletal: Reports: No Symptoms Skin: Reports: No Symptoms Neurological: Reports: No Symptoms Psychiatric: Reports: No Symptoms Hematologic/Lymphatic: Reports: No Symptoms Immunologic: Reports: No Symptoms ED EXAM, GI/ABD - Physical Exam Exam: See Below Exam Limited By: No Limitations General Appearance: Alert, WD/WN, Moderate Distress, Other (Temperature is 36.8. Heart rate is 75 and sinus respiratory is 20 with O2 sats of 98% room air BP 141/60) Eyes: Bilateral: Normal Appearance (No blepharal pallor or scleral icterus.) Throat/Mouth: Normal Inspection, Normal Lips, Normal Oropharynx, Other (Tongue is mildly dry.) Head: Atraumatic, Normocephalic Neck: Normal Inspection, Supple, Non-Tender, Full Range of Motion. No: Carotid Bruit, Lymphadenopathy (L) Respiratory/Chest: No Respiratory Distress, Lungs Clear, Normal Breath Sounds, No Accessory Muscle Use Cardiovascular: Normal Peripheral Pulses, Regular Rate, Rhythm, No Edema, No Gallop, No Murmur, No Rub GI/Abdominal Exam: No Organomegaly, No Distention, Tender (Tender right upper quadrant with a minimally positive Espinoza sign.), Abnormal Bowel Sounds (Bowel sounds are hyperactive in all 4 quadrants.), Other (Firm abdominal wall as he is well muscled. Scaphoid abdomen. Palpable cecum and right hemicolon.). No: Distended (Mildly tympany to percussion epigastrium and left upper quadrant), Guarding, Rigid, Rebound (Male) Exam: No Hernia Back Exam: Normal Inspection, Full Range of Motion. No: CVA Tenderness (L), CVA Tenderness (R) Extremities: Normal Inspection, Normal Range of Motion, Non-Tender, No Pedal Edema Neurological: Alert, Oriented, CN II-XII Intact, Normal Cognition Psychiatric: Normal Affect, Normal Mood Skin Exam: Warm, Dry, Intact, Normal Color, No Rash Course - Vital Signs Last Recorded V/S: Last Vital Signs Temp 36.8 C 03/25/21 14:24 Pulse 75 03/25/21 14:24 Resp 20 03/25/21 14:24 BP 141/60 H 03/25/21 14:24 Pulse Ox 98 03/25/21 14:24 - Orders/Labs/Meds Orders: Active Orders 24 hr Category Date Time Status Dextrose 5%-0.9% NaCl [Dextrose 5%-Normal Saline] 1,000 Med 03/25/21 14:45 Active ml IV ASDIRECTED Ketorolac [Toradol] Med 03/25/21 14:45 Active 30 mg IVPUSH ONETIME Sodium Chloride 0.9% [Saline Flush] Med 03/25/21 16:00 Active 10 ml FLUSH ASDIRECTED Medication Orders Dextrose/Sodium Chloride (Dextrose 5%-Normal Saline) 1,000 mls @ 999 mls/hr IV ASDIRECTED RENAN Last Admin: 03/25/21 15:14 Dose: 999 mls/hr Documented by: VERNELL Ketorolac Tromethamine (Ketorolac 30 Mg/Ml Sdv) 30 mg IVPUSH ONETIME [facility] Last Admin: 03/25/21 14:57 Dose: 30 mg Documented by: VERNELL Sodium Chloride (Sodium Chloride 0.9% 10 Ml Syringe) 10 ml FLUSH ASDIRECTED [facility] Last Admin: 03/25/21 16:54 Dose: 10 ml Documented by: DEMARIO Labs: Laboratory Tests 03/25/21 03/25/21 Range/Units 14:45 14:45 WBC 11.90 H (4.23-9.07) K/mm3 RBC 5.28 (4.63-6.08) M/mm3 Hgb 16.4 (13.7-17.5) gm/dl Hct 46.5 (40.1-51.0) % MCV 88.1 (79.0-92.2) fl MCH 31.1 (25.7-32.2) pg MCHC 35.3 (32.2-35.5) g/dl RDW Std Deviation 40.3 (35.1-43.9) fL Plt Count 400 H (163-337) K/mm3 MPV 8.4 L (9.4-12.3) fl Neut % (Auto) 75.1 H (34.0-67.9) % Lymph % (Auto) 15.3 L (21.8-53.1) % Green % (Auto) 8.7 (5.3-12.2) % Eos % (Auto) 0.5 L (0.8-7.0) Baso % (Auto) 0.3 (0.1-1.2) % Neut # (Auto) 8.95 H (1.78-5.38) K/mm3 Lymph # (Auto) 1.82 (1.32-3.57) K/mm3 Green # (Auto) 1.03 H (0.30-0.82) K/mm3 Eos # (Auto) 0.06 (0.04-0.54) K/mm3 Baso # (Auto) 0.03 (0.01-0.08) K/mm3 Sodium 143 (136-145) mEq/L Potassium 4.1 (3.5-5.1) mEq/L Chloride 105 (98-107) mEq/L Carbon Dioxide 29 (21-32) mEq/L Anion Gap 13.1 (5-15) BUN 10 (7-18) mg/dL Creatinine 1.2 (0.7-1.3) mg/dL Est Cr Clr Drug Dosing 99.70 mL/min Estimated GFR (MDRD) > 60 (>60) mL/min BUN/Creatinine Ratio 8.3 L (14-18) Glucose 90 (70-99) mg/dL Calcium 8.8 (8.5-10.1) mg/dL Total Bilirubin 0.6 (0.2-1.0) mg/dL GGT 27 (15-85) U/L AST 13 L (15-37) U/L ALT 29 (16-63) U/L Alkaline Phosphatase 95 (46-116) U/L C-Reactive Protein 1.5 H* (<1.0) mg/dL Total Protein 7.1 (6.4-8.2) g/dl Albumin 3.7 (3.4-5.0) g/dl Globulin 3.4 gm/dL Albumin/Globulin Ratio 1.1 (1-2) Lipase 63 L (73-393) U/L Meds: Medications Generic Name Dose Route Start Last Admin Trade Name Freq PRN Reason Stop Dose Admin Dextrose/Sodium Chloride 1,000 mls @ 999 mls/hr 03/25/21 14:45 03/25/21 15:14 Dextrose 5%-Normal Saline IV 999 mls/hr ASDIRECTED RENAN Administration Ketorolac Tromethamine 30 mg 03/25/21 14:45 03/25/21 14:57 Ketorolac 30 Mg/Ml Sdv IVPUSH 30 mg ONETIME RENAN Administration Sodium Chloride 10 ml 03/25/21 16:00 03/25/21 16:54 Sodium Chloride 0.9% 10 Ml Syringe FLUSH 10 ml ASDIRECTED RENAN Administration Discontinued Medications Generic Name Dose Route Start Last Admin Trade Name Mary Beth PRN Reason Stop Dose Admin Hydromorphone HCl 0.5 mg 03/25/21 14:36 03/25/21 15:00 Hydromorphone 0.5 Mg/0.5 Ml Syringe IVPUSH 03/25/21 14:37 0.5 mg ONETIME ONE Administration Hydromorphone HCl 0.5 mg 03/25/21 17:29 03/25/21 17:38 Hydromorphone 0.5 Mg/0.5 Ml Syringe IVPUSH 03/25/21 17:30 0.5 mg ONETIME ONE Administration Iopamidol 50 ml 03/25/21 15:46 03/25/21 16:50 Iopamidol 612 Mg/Ml 50 Ml Sdv IVPUSH 03/25/21 15:47 25 ml ONETIME ONE Administration Iopamidol 100 ml 03/25/21 15:46 03/25/21 16:54 Iopamidol 612 Mg/Ml 100 Ml Bottle IVPUSH 03/25/21 15:47 100 ml ONETIME ONE Administration Magnesium Citrate 240 ml 03/25/21 17:39 Magnesium Citrate Solution 296 Ml Bottle PO 03/25/21 17:40 ONETIME ONE Metoclopramide HCl 7.5 mg 03/25/21 14:36 03/25/21 14:55 Metoclopramide 10 Mg/2 Ml Sdv IVPUSH 03/25/21 14:37 7.5 mg ONETIME ONE Administration - Radiology Interpretation Free Text/Narrative:: 20-year-old male attends the ED with a history of intermittent abdominal pain off and on for the better part of 3 weeks. It did seem to get worse with eating. However over the last 5 days since March 21 he has had constant epigastric abdominal pain made much worse by eating. It makes him feel slightly nauseated but he is never vomited. He has a strong feeling of need to defecate but is unable to do so. He feels he passes some loose brown stool with pushing but has not been able to have a formed bowel movement for several days. No previous abdominal surgery. Abdominal exam reveals hyperactive bowel sounds all 4 quadrants. Slight tenderness at the right upper costal margin with a minimally positive Espinoza sign. Palpable right hemicolon particular the cecum. No hernias. No surgical abdomen identified. I suspect the patient is likely severely constipated. Plan D5 normal saline at open. Dilaudid 0.5 mg IV with Toradol 30 mg IV for pain relief with Reglan 7.5 mg IV. He will have a KUB performed. Routine labs to include a serum lipase and GGT and CRP to be done. - Re-Assessments/Exams Free Text/Narrative Re-Assessment/Exam: 03/25/21 15:03 Hematology reveals a mildly elevated white count at 11.9 with 75% neutrophils on the auto differential. Hemoglobin is 16.4 with hematocrit of 46.5 suggesting mild hemoconcentration MCV is 88.1. Platelet count is elevated at 400,000 Free Text/Narrative Re-Assessment/Exam: 03/25/21 15:16 KUB reveals some stool throughout the transverse colon and descending colon but the right colon is empty and the rectal vault is essentially empty. We will therefore proceed with CT scan of the abdomen and pelvis with oral and IV contrast.Sodium is 143 with a potassium of 4.1. Chloride 105 with a bicarb of 29. Anion gap is 13.1. BUN is 10 with a creatinine of 1.2 and a GFR greater than 60. Glucose is 90 with a calcium of 8.8. Bilirubin is 0.6 GGT is 27 AST is 13 ALT is 29 alkaline phosphatase is 95. C-reactive protein is 1.5. Serum lipase is 63. Total protein 7.1 with an albumin fraction of 3.7. 03/25/21 15:28 I have discussed the findings with the patient and advised the need for CT of the abdomen to help clarify what is causing his abdominal pain with inability to eat. He will have CT of the abdomen performed with IV and oral contrast. Currently his pain is well controlled. If it worsens with oral contrast he is to let us know. 03/25/21 16:11 Patient has drank all of his contrast media with only slight increase in abdominal pain. CT scan will be done approximately 20 after the hour. 03/25/21 17:27 CT scan of the abdomen pelvis performed with oral and IV contrast. Visualized lung bases show nothing acute. Liver contains no focal abnormality. Spleen size is normal. Adrenal glands show no nodules. Pancreas shows no abnormality gallbladder contains no calcified gallstones. Kidneys show symmetric contrast enhancement with no hydronephrosis or mass. Abdominal aorta shows no aneurysm. No retroperitoneal adenopathy is seen. No mesenteric abnormalities are seen. Small amount of free fluid is seen within the pelvis. Diffuse bowel wall thickening is noted within the right colon with mild surrounding inflammatory change. Findings are compatible with a nonspecific colitis. Appendix is seen which is normal in size. Delayed images show contrast within the distal ureters and within the bladder. Bone window settings were reviewed which appeared normal. I feel there is a good deal of stool throughout the entire colon particular right hemicolon and descending colon. I agree with thickening of the wall of the cecum area in the sagittal views. This is less evident on the coronal views which reveal stool throughout the entire cecum. Possible etiology includes Yersinia enterocolitis to cause a nonspecific inflammation circumferential in the cecum.. I have discussed the findings with the patient. He is having increased abdominal pain at this time. Will repeat Dilaudid 0.5 mg IV. 03/25/21 18:11 Patient is feeling less pain after receiving the second dose of Dilaudid 0.5 mg IV. He has a sister here in town who will drive him back to [facility]. He will take 8 ounces of magnesium citrate upon reaching home tonight to provide bowel cleanse. He has used this medication in the past. Advised Bentyl 20 mg by mouth every 6 hours if needed to relieve abdominal cramping pain. If this fails to control his pain he may try Percocet 5/325 mg tablet. I am going to start him on Levaquin 500 mg once daily for the next 10 days due to suggested by radiologist of a nonspecific colitis in the cecum. On reexamination the patient is much more tender in the distribution of his cecum and right lower quadrant of the abdomen then he was on my initial evaluation. Advised he needs to be followed up in 5 days if not back to normal. I believe bowel cleanse should provide a good deal of pain relief for him. If the patient is going to need colonoscopy have advised him to follow-up with Dr. Med Garza from the department of surgery here in our hospital. Departure - Departure Time of Disposition: 18:11 Disposition: Home, Self-Care 01 Condition: Fair Clinical Impression: Abdominal pain in male, Constipation by delayed colonic transit, Nonspecific colitis Abdominal pain Qualifiers: Abdominal location: epigastric Qualified Code(s): R10.13 - Epigastric pain - Discharge Information *PRESCRIPTION DRUG MONITORING PROGRAM REVIEWED*: Not Applicable *COPY OF PRESCRIPTION DRUG MONITORING REPORT IN PATIENT JERONIMO: Not Applicable Prescriptions: Dicyclomine [Bentyl] 20 mg PO Q6H PRN #8 tablet PRN Reason: Abdominal cramps/diarrhea levoFLOXacin [Levaquin] 500 mg PO DAILY #10 tab oxyCODONE HCl/Acetaminophen [Percocet 5-325 mg Tablet] 1 - 2 each PO Q4H PRN #14 tablet PRN Reason: pain relief. Instructions: Constipation, Adult, Abdominal Pain, Adult, [id number] Referrals: Sara Courtney NP [Primary Care Provider] - Forms: ED Department Discharge Additional Instructions: Evaluation in the emergency room today in regards to intermittent abdominal pain for the better part of 3 weeks but much more constant and severe pain over the last 5 days. Pain is felt primarily in the upper abdomen or epigastrium and worsened by eating. No associated fever chills and minimal nausea. No vomiting. Feeling of need to defecate but unable to pass more than a little bit of liquid stool. Lab tests revealed a minimally elevated white blood cell count with no evidence of fighting off infection. This suggested it is due to pain response. The remainder of the lab tests were completely normal. An x-ray of the abdomen did suggest mild increase stool within the colon primarily on the right side and right upper colon. CT scan of the abdomen was performed with oral and IV contrast and reveals a normal stomach normal liver normal pancreas and spleen. Both kidneys and drainage tubes called the ureters are normal as well. There is increased stool throughout the majority of the colon compatible with constipation. There is a question of diffuse thickening of the first portion of the large bowel called the cecum which is in your right lower quadr ant where the appendix attaches. The appendix is seen and is normal. These inflammation in the cecum or thickening of the bowel wall can be due to viral infection or bacterial infection. It can also be due to early inflammatory bowel disease although would be very atypical to start in this area alone. Suggest treatment to be antibiotic Levaquin 500 mg tablet once daily for the next 10 days starting today. This would clear up any infectious cause for inflammation of the bowel. The contrast that you drink will cause cramping and usually does cause some movement of the bowels. I would suggest taking 8 ounces of magnesium citrate called Citroma mixed with 8 ounces of juice of choice or Gatorade when you get home tonight to ensure good bowel cleanse. This will clear out the increase stool in the right hemicolon which I think is causing the majority of your pain . I have sent send you home also with Bentyl tablets 20 mg grams strength every 6 hours as needed for relief of abdominal cramping or pain. If pain not controlled well with the Bentyl alone after an hour may take Percocet tablet 5/325 mg tablet 1 or 2 every 4-6 hours as needed for pain relief. Note if you take the stronger pain pills they will slow the bowel down and can cause constipation and they should not be taken if you were to operate machinery or drive a motor vehicle in the next 6 to 8 hours after taking them. This should be used primarily for bad pain which you have been experiencing the last few days. If you are not completely back to normal in 5 to 7 days I want you to make an appointment to see surgeon here at our hospital Dr. Med Garza. His phone number is [phone] to make an appointment. You can tell them that you have been referred by Dr. Reddy from the emergency department. He will have access to your CT scans etc. Sepsis Event Note (ED) - Focused Exam Vital Signs: Vital Signs Temp Pulse Resp BP Pulse Ox 03/25/21 14:24 36.8 C 75 20 141/60 H 98 - My Orders Last 24 Hours: My Active Orders 03/25/21 14:45 Dextrose 5%-0.9% NaCl [Dextrose 5%-Normal Saline] 1,000 ml IV ASDIRECTED Ketorolac [Toradol] 30 mg IVPUSH ONETIME 03/25/21 16:00 Sodium Chloride 0.9% [Saline Flush] 10 ml FLUSH ASDIRECTED - Assessment/Plan Last 24 Hours: My Active Orders 03/25/21 14:45 Dextrose 5%-0.9% NaCl [Dextrose 5%-Normal Saline] 1,000 ml IV ASDIRECTED Ketorolac [Toradol] 30 mg IVPUSH ONETIME 03/25/21 16:00 Sodium Chloride 0.9% [Saline Flush] 10 ml FLUSH ASDIRECTED
[2021-03-25] MEDS ORDERED: HYDROmorphone 0.5 MG/0.5 ML Syringe IVPUSH ONE ×2 (14:36→17:29)
[2021-03-25] MEDS ORDERED: Metoclopramide 10 MG/2 ML SDV IVPUSH ONE (14:36)
[2021-03-25] MEDS ORDERED: Ketorolac 30 MG/ML SDV IVPUSH SCH (14:45)
[2021-03-25] MEDS ORDERED: Dextrose 5%-0.9% NaCl 1,000 ML IV SCH (14:45)
--- NOTE | 2021-03-25 15:26 | CR ---
Abdomen: Supine view of the abdomen was obtained. Comparison: No prior abdominal study is available. Bowel gas pattern is normal. No abnormal calcifications or soft tissue abnormality is seen. Bony structures appear within normal limits. Impression: 1. Nothing acute is seen on supine abdominal x-ray. Diagnostic code #1
[2021-03-25] MEDS ORDERED: Iopamidol 612 MG/ML 50 ML SDV IVPUSH ONE (15:46)
[2021-03-25] MEDS ORDERED: Iopamidol 612 MG/ML 100 ML Bottle IVPUSH ONE (15:46)
[2021-03-25] MEDS ORDERED: Sodium Chloride 0.9% 10 ML Syringe FLUSH SCH (16:00)
--- NOTE | 2021-03-25 17:17 | CT ---
CT abdomen and pelvis Technique: Multiple axial sections were obtained from above the dome of the diaphragm inferiorly through the pubic symphysis. Intravenous and oral contrast were utilized. Delayed images were obtained through the bladder. Reconstructed coronal and sagittal images were obtained. Comparison: Prior abdominal x-ray performed earlier on the same day (3:04 PM). Findings: Visualized lung bases shows nothing acute. Liver contains no focal abnormality. Spleen size is normal. Adrenal glands show no nodule. Pancreas shows no abnormality. Gallbladder contains no calcified gallstones. Kidneys show symmetric contrast enhancement with no hydronephrosis or mass. Abdominal aorta shows no aneurysm. No retroperitoneal adenopathy is seen. No mesenteric abnormalities are seen. Small amount of free fluid is seen within the pelvis. Diffuse bowel wall thickening is noted within the right colon with mild surrounding inflammatory change. Findings are compatible with nonspecific colitis. Appendix is seen which is normal in size. Delayed images show contrast within the distal ureters and within the bladder. Bone window settings were reviewed which appear within normal limits. Impression: 1. Bowel wall thickening within the right colon with slight surrounding inflammatory change compatible with a nonspecific colitis. 2. Slight free fluid within the pelvis which is most likely from the colitis. 3. No additional abnormality is appreciated on CT study of the abdomen and pelvis. Diagnostic code #3
[2021-03-25] MEDS ORDERED: Magnesium Citrate Solution 296 ML Bottle PO ONE (17:39)
== END 2021-03-25 18:25 | disposition home or self-care (01) ==
LOC: JD.ED 13:57
DX: K59.01 Slow transit constipation (principal); K52.9 Noninfective gastroenteritis and colitis, unspecified; Z88.0 Allergy status to penicillin
CPT/HCPCS: 36415; 74018; 74177; 80053; 82977; 83690; 85025; 86140; 96374; 96375; 96376; 99284; A9270; J1170; J1885; J2765; J7042; Q9967

== ENCOUNTER 2025-02-13 01:25 | Emergency (ER) | payer OTHER ==
[2025-02-13] MEDS: Fluorescein 1 MG Ophth Strip EYERT ONE (01:50)
[2025-02-13] MEDS: Polymyxin B/Trimethoprim 10 ML Bottle EYELF ONE (02:29)
== END 2025-02-13 02:20 | disposition home or self-care (01) ==
LOC: JD.ED 01:25
DX: T15.92XA Foreign body on external eye, part unspecified, left eye, initial encounter (principal); F17.200 Nicotine dependence, unspecified, uncomplicated; Z88.0 Allergy status to penicillin; Z88.8 Allergy status to other drugs, medicaments and biological substances; Z79.899 Other long term (current) drug therapy; W45.8XXA Other foreign body or object entering through skin, initial encounter
CPT/HCPCS: 99283; J3490